=== PATIENT | female | born 1955 | race Caucasian/White ===

== ENCOUNTER → 2019-06-18 | Outpatient (CLI) | payer BC ==
[~2019-06-18] MED LIST: CHOL200074 PO; LOSA50TA64 PO; METF-444 PO
== END | disposition home or self-care (01) ==
LOC: RAH 07:43
PROVIDERS: ATTEND Nurse Practitioner Adult Health
DX: Z12.31 Encounter for screening mammogram for malignant neoplasm of breast (principal)
CPT/HCPCS: 77067

== ENCOUNTER → 2020-08-30 | Outpatient (CLI) | payer BC | END | disposition home or self-care (01) | LOC: RAH 09:25 | PROVIDERS: ATTEND Nurse Practitioner Adult Health | DX: Z12.31 Encounter for screening mammogram for malignant neoplasm of breast (principal) | CPT/HCPCS: 77067 ==

== ENCOUNTER → 2022-12-06 | Outpatient (CLI) | payer BC | END | disposition home or self-care (01) | LOC: RAH 14:56 | PROVIDERS: ATTEND Nurse Practitioner Adult Health | DX: Z12.31 Encounter for screening mammogram for malignant neoplasm of breast (principal) | CPT/HCPCS: 77067 ==

== ENCOUNTER → 2023-12-10 | Outpatient (CLI) | payer BC | END | disposition home or self-care (01) | LOC: RAH 11:32 | PROVIDERS: ATTEND Nurse Practitioner Adult Health | DX: Z12.31 Encounter for screening mammogram for malignant neoplasm of breast (principal); R92.323 Mammographic fibroglandular density, bilateral breasts; R92.1 Mammographic calcification found on diagnostic imaging of breast | CPT/HCPCS: 77067 ==

== ENCOUNTER → 2023-12-21 | Outpatient (CLI) | payer BC | LOC: LAB 11:13 | PROVIDERS: ATTEND Psychiatry & Neurology Psychiatry | DX: R94.31 Abnormal electrocardiogram [ECG] [EKG] (principal); Z79.899 Other long term (current) drug therapy | CPT/HCPCS: 93005 ==

== ENCOUNTER → 2024-01-23 | Outpatient (CLI) | payer BC | END | disposition home or self-care (01) | LOC: RAH 13:55 | PROVIDERS: ATTEND Nurse Practitioner Adult Health | DX: G89.11 Acute pain due to trauma (principal) | CPT/HCPCS: 73110; 73130 ==

== ENCOUNTER → 2025-01-14 | Outpatient (CLI) | payer BC | END | disposition home or self-care (01) | LOC: RAH 09:28 | PROVIDERS: ATTEND Nurse Practitioner Adult Health | DX: Z12.31 Encounter for screening mammogram for malignant neoplasm of breast (principal) | CPT/HCPCS: 77067 ==

== ENCOUNTER → 2025-02-10 | Outpatient (CLI) | payer BC ==
--- NOTE | 2025-02-16 14:11 | HMCIMG ---
CLINICAL INDICATION: Unspecified menopausal and perimenopausal disorder COMPARISON: None available TECHNIQUE: Bone densitometry is performed of the lumbar spine and left hip. FINDINGS: Total BMD of lumbar spine is 0.94 g/cm2 with a T-score of -0.6 and Z-score is 1.4. Total BMD of left hip is 0.895 g/cm2 with a T-score of -0.7 and Z-score is 0.7. FRAX SCORE: The 10 year fracture risk for a major osteoporotic fracture and hip fracture 10% IMPRESSION: 1. Osteopenia of the left hip 2. Normal lumbar spine 3. I would recommend follow-up in 13 months World Health Organization criteria for BMD interpretation classify patients as Normal (T-score at or above -1.0), Osteopenic (T-score between -1.0 and -2.5), or Osteoporotic (T-score at or below -2.5). FRAX SCORE: A. All treatment decisions require clinical judgment and consideration of individual patient factors, including patient preferences, comorbidities, previous drug use, risk factors not captured in the FRAX model (e.g., frailty, falls, vitamin D deficiency, increased bone turnover, interval significant decline in bone density) and possible [id number]-estimation of fracture risk by FRAX. B. In addition, the NOF Guide recommends that FDA-approved medical therapies be considered in postmenopausal women and men age greater than or equal to 50 years with a: i. Hip or vertebral (clinical or morphometric) fracture. ii. T-score of less than or equal to -2.5 at the spine or hip. iii. Ten-year fracture probability by FRAX of greater than or equal to 3% for hip fracture of greater than or equal to 20% for major osteoporotic fracture.
== END | disposition home or self-care (01) ==
LOC: RAH 08:01
PROVIDERS: ATTEND Nurse Practitioner Adult Health
DX: M85.852 Other specified disorders of bone density and structure, left thigh (principal); N95.9 Unspecified menopausal and perimenopausal disorder
CPT/HCPCS: 77080